=== PATIENT | male | born 1965 | race Caucasian/White ===

== ENCOUNTER 2023-04-14 19:39 | Observation (INO) | payer MEDICARE, MEDICAID ==
[2023-04-14 21:06] VITALS: BMI 26.9
[2023-04-14] MEDS ORDERED: Ipratropium/Albuterol 3 ML NEB NEB PRN (21:50)
[2023-04-14] MEDS ORDERED: traZODone HCl 50 MG TAB PO PRN (21:51)
[2023-04-14] MEDS: Atorvastatin Calcium 40 MG TAB PO SCH (22:11)
[2023-04-14] MEDS: Enoxaparin 80 MG (0.8 mL) SYRINGE SC SCH (22:12)
[2023-04-14] MEDS: traZODone HCl 50 MG TAB PO SCH (22:12)
[2023-04-14] MEDS: Nitroglycerin 2% Ointment 1 INCH/1 GM Packet TOP SCH (22:13)
[2023-04-14 22:31] LABS: PTT 25.5 sec (22.0-33.0); Prothrombin Time 11.2 sec (9.5-12.1)
[2023-04-14 22:34] LABS: Anion Gap 12 mmol/L (10-20); BUN (Urea Nitrogen) 19 mg/dL (8.4-25.7); Calc. Creatinine Clearance 64 mL/min (70-130); Carbon Dioxide 26 mmol/L (22-29); Chloride 101 mmol/L (98-107); Estimated GFR 59; Glucose 105 mg/dL (70-105); Magnesium 2.1 mg/dL (1.6-2.6); Potassium 3.3 mmol/L (3.5-5.1); Sodium 136 mmol/L (136-145)
[2023-04-15] MEDS: Potassium Chloride 20 MEQ TAB PO SCH ×2 (03:34→06:23)
[2023-04-15 04:26] LABS: Anion Gap 12 mmol/L (10-20); BUN (Urea Nitrogen) 19 mg/dL (8.4-25.7); Calc. Creatinine Clearance 70 mL/min (70-130); Calcium 8.3 mg/dL (7.8-10.44); Carbon Dioxide 27 mmol/L (22-29); Cardiac Risk 5.1 (Less than 4.5); Chloride 102 mmol/L (98-107); Cholesterol 178 mg/dl (< 200 Desired); Estimated GFR 65; Glucose 99 mg/dL (70-105); HDL Cholesterol 35 mg/dL (>60 Neg Risk); Iron 10 ug/dL (65-175); Iron Binding Capacity, Total 406 mcg/dL (261-462); Iron Binding Capacity, Total 415 mcg/dL (261-462); LDL Cholesterol, Calculated 113 mg/dL; Magnesium 2.2 mg/dL (1.6-2.6); Potassium 3.2 mmol/L (3.5-5.1); Sodium 138 mmol/L (136-145); Triglycerides 149 mg/dL (Less than 150)
[2023-04-15] MEDS: Enoxaparin 80 MG (0.8 mL) SYRINGE SC SCH (08:18)
[2023-04-15] MEDS: Montelukast Sodium 10 mg Tablet PO SCH (08:19)
[2023-04-15] MEDS: Aspirin Chewable 81 MG TAB PO SCH (08:19)
[2023-04-15] MEDS: Furosemide 40 MG (4 mL) VIAL SLOW IVP SCH (08:19)
[2023-04-15] MEDS: Tamsulosin HCl 0.4 MG CAP PO SCH (08:19)
[2023-04-15] MEDS: Lisinopril 20 MG TAB PO SCH (08:19)
[2023-04-15 11:33] LABS: Magnesium 2.2 mg/dL (1.6-2.6)
[2023-04-15 11:45] LABS: Lymphocytes 17 % (21-51); Monocytes 8 % (0-10); Neutrophil 67 % (42-75); Reactive Lymphocytes 7 % (0-10)
[2023-04-15 11:46] LABS: MDiff Complete? YES; Microcytosis SLIGHT = 6-15 cells (100X) (0-5/hpf); Platelet Adequacy Comment Appears Adequate
[2023-04-15 11:47] LABS: Hemoglobin 10.2 g/dL (13.5-17.5); Mean Corpuscular Hemoglobin 20.1 pg (27.0-33.0); Mean Corpuscular Volume 66.9 fl (81.2-95.1); Mean Platelet Volume 11.2 fl (7.4-10.4); Platelet Count 295 10x3/uL (150-450); RBC Distribution Width 15.9 % (11.5-14.5); Red Blood Cell (RBC) Count 5.08 10x6/uL (4.32-5.72); White Blood Cell (WBC) Count 7.3 10x3/uL (3.5-10.5)
[2023-04-15] MEDS: Amlodipine 5 MG TAB PO SCH (12:18)
[2023-04-15 16:10] VITALS: BP 185/88; TEMP 97.5
[2023-04-15] MEDS ORDERED: Atorvastatin Calcium 40 MG TAB PO SCH (21:00)
[2023-04-16] MEDS ORDERED: Amlodipine 5 MG TAB PO SCH (09:00)
== END 2023-04-15 16:41 | disposition home or self-care (01) ==
LOC: CSHTELE 20:41
PROVIDERS: ADMIT Hospitalist; ATTEND Hospitalist
DX: I11.0 Hypertensive heart disease with heart failure (principal); I50.31 Acute diastolic (congestive) heart failure; I48.0 Paroxysmal atrial fibrillation; J96.01 Acute respiratory failure with hypoxia; D50.9 Iron deficiency anemia, unspecified; E78.5 Hyperlipidemia, unspecified; R79.89 Other specified abnormal findings of blood chemistry; I34.0 Nonrheumatic mitral (valve) insufficiency; J45.909 Unspecified asthma, uncomplicated; Z98.890 Other specified postprocedural states; Z79.01 Long term (current) use of anticoagulants; Z79.899 Other long term (current) drug therapy
CPT/HCPCS: 36415; 71045; 80048; 80061; 82728; 83540; 83550; 83735; 85025; 85610; 85730; 93005; 93010; 93306; 96372; 96374; G0378; J1650; J1940

== ENCOUNTER 2023-05-07 00:48 | Inpatient (IN) | payer MEDICARE, MEDICAID ==
[2023-05-07 01:16] LABS: #Basophils 0.1 10x3/uL (0.0-0.2); #Eosinphils 0.1 10x3/uL (0.0-0.5); #Monocytes 0.6 10x3/uL (0.0-1.1); #Neutrophils 6.2 10x3/uL (1.5-8.4); %Basophils 0.7 % (0.0-2.0); %Eosinophils 0.9 % (0.0-6.0); %Lymphocytes 20.3 % (18.0-47.0); %Monocytes 7.2 % (0.0-10.0); %Neutrophils 70.1 % (40.0-75.0); Critical Call w/ Read Back ERS.EG@0115; Hematocrit 17.8 % (38.8-50.0); Hemoglobin 5.2 g/dL (13.5-17.5); Mean Corpuscular HGB CONC 29.2 g/dL (32.0-36.0); Mean Corpuscular Hemoglobin 19.6 pg (27.0-33.0); Mean Corpuscular Volume 67.2 fl (81.2-95.1); Mean Platelet Volume 11.5 fl (7.4-10.4); Platelet Count 226 10x3/uL (150-450); RBC Distribution Width 16.3 % (11.5-14.5); Red Blood Cell (RBC) Count 2.65 10x6/uL (4.32-5.72); White Blood Cell (WBC) Count 8.8 10x3/uL (3.5-10.5)
[2023-05-07 01:18] LABS: INR-International Normal Ratio 1.1; PTT 26.8 sec (22.0-33.0); Prothrombin Time 11.9 sec (9.5-12.1)
[2023-05-07 01:21] LABS: ALT (SGPT) 7 U/L (8-55); AST (SGOT) 8 U/L (5-34); Albumin 3.1 g/dL (3.5-5.0); Alkaline Phosphatase 30 U/L (40-110); Anion Gap 14 mmol/L (10-20); BUN (Urea Nitrogen) 39 mg/dL (8.4-25.7); Bilirubin, Total 0.4 mg/dL (0.2-1.2); Calc. Creatinine Clearance 0 mL/min (70-130); Calcium 7.6 mg/dL (7.8-10.44); Carbon Dioxide 20 mmol/L (22-29); Chloride 101 mmol/L (98-107); Estimated GFR 92; Globulin 1.8 g/dL (2.4-3.5); Glucose 140 mg/dL (70-105); Potassium 3.6 mmol/L (3.5-5.1); Protein, Total 4.9 g/dL (6.0-8.3); Sodium 131 mmol/L (136-145)
[2023-05-07] MEDS ORDERED: Pantoprazole 40 MG VIAL ONE ×2 (01:30→03:30)
[2023-05-07 01:47] LABS: Hypochromia MODERATE=16-30 cells (100X) (0-5/hpf); Microcytosis MODERATE=15-30 cells (100X) (0-5/hpf)
[2023-05-07 01:48] LABS: Polychromasia SLIGHT = 2-3 cells (100X) (0-2/hpf)
[2023-05-07 01:49] LABS: Elliptocytes SLIGHT = 2-5 cells (100X) (0-1/hpf); Ovalocytes MODERATE= 6-15 cells (100X) (0-1/hpf); Small Platelets MODERATE HPF (0-15)
[2023-05-07 01:50] LABS: Platelet Adequacy Comment Appears Adequate
[2023-05-07] MEDS: Promethazine HCl 12.5 MG in Sodium Chloride 0.9% 50 ML IVPB SCH (05:01)
[2023-05-07] MEDS: HUM PROTHROMBIN CPLX(PCC)4FACT 2,000 UNITS IV SCH (05:02)
[2023-05-07] MEDS: Mometasone/Formoterol 200/5 60 PUFF INH SCH (06:59)
[2023-05-07 08:25] LABS: #Monocytes 0.8 10x3/uL (0.0-1.1); #Neutrophils 6.1 10x3/uL (1.5-8.4); %Basophils 0.4 % (0.0-2.0); %Eosinophils 0.3 % (0.0-6.0); %Lymphocytes 24.3 % (18.0-47.0); %Monocytes 8.6 % (0.0-10.0); %Neutrophils 65.8 % (40.0-75.0); Hematocrit 21.9 % (38.8-50.0); Hemoglobin 7.1 g/dL (13.5-17.5); Mean Corpuscular HGB CONC 32.4 g/dL (32.0-36.0); Mean Platelet Volume 11.4 fl (7.4-10.4); Platelet Count 185 10x3/uL (150-450); RBC Distribution Width 20.4 % (11.5-14.5); Red Blood Cell (RBC) Count 2.96 10x6/uL (4.32-5.72); White Blood Cell (WBC) Count 9.3 10x3/uL (3.5-10.5)
[2023-05-07 08:32] LABS: Anion Gap 11 mmol/L (10-20); BUN (Urea Nitrogen) 40 mg/dL (8.4-25.7); Calc. Creatinine Clearance 0 mL/min (70-130); Calcium 7.8 mg/dL (7.8-10.44); Carbon Dioxide 23 mmol/L (22-29); Chloride 107 mmol/L (98-107); Estimated GFR 93; Glucose 112 mg/dL (70-105); Potassium 4.2 mmol/L (3.5-5.1); Sodium 137 mmol/L (136-145)
[2023-05-07 08:38] LABS: Troponin I 0.112 ng/mL (< 0.028)
[2023-05-07] MEDS: Metoprolol Tartrate 25 MG TAB PO SCH (08:39)
[2023-05-07 08:40] LABS: PTT 24.1 sec (22.0-33.0); Prothrombin Time 11.1 sec (9.5-12.1)
[2023-05-07] MEDS: Sodium Chloride 0.9% 1,000 ML IV SCH (08:40)
[2023-05-07 12:14] LABS: #Monocytes 0.7 10x3/uL (0.0-1.1); #Neutrophils 5.2 10x3/uL (1.5-8.4); %Basophils 0.5 % (0.0-2.0); %Eosinophils 0.5 % (0.0-6.0); %Lymphocytes 20.9 % (18.0-47.0); %Monocytes 9.2 % (0.0-10.0); %Neutrophils 68.2 % (40.0-75.0); Hematocrit 21.1 % (38.8-50.0); Hemoglobin 6.7 g/dL (13.5-17.5); Mean Corpuscular HGB CONC 31.8 g/dL (32.0-36.0); Mean Corpuscular Hemoglobin 23.7 pg (27.0-33.0); Mean Corpuscular Volume 74.6 fl (81.2-95.1); Platelet Count 174 10x3/uL (150-450); RBC Distribution Width 19.6 % (11.5-14.5); Red Blood Cell (RBC) Count 2.83 10x6/uL (4.32-5.72); White Blood Cell (WBC) Count 7.6 10x3/uL (3.5-10.5)
[2023-05-07 12:47] LABS: Troponin I 0.102 ng/mL (< 0.028)
[2023-05-07] MEDS: Pantoprazole 80 MG in Sodium Chloride 0.9% 100 ML IVPB SCH (13:15)
[2023-05-07 18:45] LABS: #Basophils 0.1 10x3/uL (0.0-0.2); #Eosinphils 0.1 10x3/uL (0.0-0.5); #Monocytes 0.7 10x3/uL (0.0-1.1); #Neutrophils 5.9 10x3/uL (1.5-8.4); %Basophils 0.7 % (0.0-2.0); %Eosinophils 1.4 % (0.0-6.0); %Lymphocytes 20.4 % (18.0-47.0); %Monocytes 7.7 % (0.0-10.0); %Neutrophils 69.1 % (40.0-75.0); Hemoglobin 6.9 g/dL (13.5-17.5); Mean Corpuscular HGB CONC 31.4 g/dL (32.0-36.0); Mean Corpuscular Hemoglobin 24.3 pg (27.0-33.0); Mean Corpuscular Volume 77.5 fl (81.2-95.1); Mean Platelet Volume 11.5 fl (7.4-10.4); Platelet Count 164 10x3/uL (150-450); RBC Distribution Width 20.2 % (11.5-14.5); Red Blood Cell (RBC) Count 2.84 10x6/uL (4.32-5.72); White Blood Cell (WBC) Count 8.5 10x3/uL (3.5-10.5)
[2023-05-07 21:03] LABS: Hematocrit 25.2 % (38.8-50.0); Hemoglobin 7.5 g/dL (13.5-17.5)
[2023-05-08 01:30] LABS: #Basophils 0.1 10x3/uL (0.0-0.2); #Eosinphils 0.2 10x3/uL (0.0-0.5); #Monocytes 0.7 10x3/uL (0.0-1.1); #Neutrophils 4.9 10x3/uL (1.5-8.4); %Basophils 0.7 % (0.0-2.0); %Eosinophils 2.5 % (0.0-6.0); %Lymphocytes 22.6 % (18.0-47.0); %Monocytes 9.2 % (0.0-10.0); %Neutrophils 64.3 % (40.0-75.0); Hematocrit 20.8 % (38.8-50.0); Hemoglobin 6.6 g/dL (13.5-17.5); Mean Corpuscular HGB CONC 31.7 g/dL (32.0-36.0); Mean Corpuscular Hemoglobin 24.3 pg (27.0-33.0); Mean Corpuscular Volume 76.5 fl (81.2-95.1); Mean Platelet Volume 11.1 fl (7.4-10.4); Platelet Count 143 10x3/uL (150-450); RBC Distribution Width 20.1 % (11.5-14.5); Red Blood Cell (RBC) Count 2.72 10x6/uL (4.32-5.72); White Blood Cell (WBC) Count 7.6 10x3/uL (3.5-10.5)
[2023-05-08] MEDS ORDERED: EPINEPHrine 1 MG/10 ML Abboject SYRINGE ONE (12:07)
[2023-05-08] MEDS ORDERED: Lidocaine 2% MPF 10 ML AMP (For Epidural Use) ONE (13:37)
[2023-05-08] MEDS ORDERED: PROPOFOL 20 ML ONE ×2 (13:38→14:21)
[2023-05-08] MEDS ORDERED: Etomidate 40 MG (20 mL) VIAL ONE (13:53)
[2023-05-08] MEDS ORDERED: Vasopressin 20 UNITS/ML VIAL ONE (13:54)
[2023-05-08 15:50] LABS: Hematocrit 21.9 % (38.8-50.0); Hemoglobin 6.9 g/dL (13.5-17.5)
[2023-05-08] MEDS: Ipratropium/Albuterol 3 ML NEB NEB PRN (16:30)
[2023-05-08] MEDS: Furosemide 40 MG (4 mL) VIAL SLOW IVP SCH (17:32)
[2023-05-08] MEDS: Metoprolol Tartrate 25 MG TAB PO SCH (20:26)
[2023-05-08] MEDS: Atorvastatin Calcium 40 MG TAB PO SCH (20:26)
[2023-05-08 22:17] LABS: Hematocrit 26.1 % (38.8-50.0); Hemoglobin 8.7 g/dL (13.5-17.5)
[2023-05-09 00:31] VITALS: BMI 29.7
[2023-05-09 03:46] LABS: Anion Gap 13 mmol/L (10-20); BUN (Urea Nitrogen) 15 mg/dL (8.4-25.7); Calc. Creatinine Clearance 90 mL/min (70-130); Calcium 7.7 mg/dL (7.8-10.44); Carbon Dioxide 21 mmol/L (22-29); Chloride 107 mmol/L (98-107); Estimated GFR 91; Glucose 101 mg/dL (70-105); Potassium 3.7 mmol/L (3.5-5.1); Sodium 137 mmol/L (136-145)
[2023-05-09 05:56] LABS: #Basophils 0.1 10x3/uL (0.0-0.2); #Eosinphils 0.4 10x3/uL (0.0-0.5); #Monocytes 0.8 10x3/uL (0.0-1.1); #Neutrophils 5.3 10x3/uL (1.5-8.4); %Eosinophils 4.8 % (0.0-6.0); %Lymphocytes 16.2 % (18.0-47.0); %Monocytes 10.6 % (0.0-10.0); %Neutrophils 66.9 % (40.0-75.0); Hematocrit 27.6 % (38.8-50.0); Hemoglobin 9.1 g/dL (13.5-17.5); Mean Corpuscular Volume 78.9 fl (81.2-95.1); Mean Platelet Volume 11.4 fl (7.4-10.4); Platelet Count 155 10x3/uL (150-450); RBC Distribution Width 19.3 % (11.5-14.5); White Blood Cell (WBC) Count 7.9 10x3/uL (3.5-10.5)
[2023-05-09] MEDS: Ondansetron PF 4 MG/2 ML Vial IVP PRN (08:08)
[2023-05-09] MEDS: Furosemide 40 MG TAB PO SCH (08:25)
[2023-05-09] MEDS: Montelukast Sodium 10 mg Tablet PO SCH (08:25)
[2023-05-09] MEDS: Tamsulosin HCl 0.4 MG CAP PO SCH (08:25)
[2023-05-09] MEDS: Mirabegron ER 25 MG ER.TAB PO SCH (08:47)
[2023-05-09 09:34] VITALS: BP 179/62; TEMP 98.1
== END 2023-05-09 11:08 | disposition home or self-care (01) | DRG 377 ==
LOC: CSHERS 00:48 → CSHERHOLD 02:32 → CSHICU 08:39
PROVIDERS: ADMIT Student in an Organized Health Care Education/Training Program; ATTEND Internal Medicine
PROC: 0W3P8ZZ Control Bleeding in Gastrointestinal Tract, Via Natural or Artificial Opening Endoscopic (ICD-10-PCS; principal; 2023-05-08)
DX: K92.0 Hematemesis (principal); I21.A1 Myocardial infarction type 2; D62 Acute posthemorrhagic anemia; I50.32 Chronic diastolic (congestive) heart failure; Q27.33 Arteriovenous malformation of digestive system vessel; R62.50 Unspecified lack of expected normal physiological development in childhood; R10.13 Epigastric pain; F20.9 Schizophrenia, unspecified; I48.0 Paroxysmal atrial fibrillation; Z98.890 Other specified postprocedural states; Z90.89 Acquired absence of other organs; R79.89 Other specified abnormal findings of blood chemistry; Z79.82 Long term (current) use of aspirin; Z79.899 Other long term (current) drug therapy; Z79.01 Long term (current) use of anticoagulants; I11.0 Hypertensive heart disease with heart failure
CPT/HCPCS: 36415; 36430; 71045; 80048; 80053; 82274; 84484; 85025; 85610; 85730; 86850; 86900; 86901; 93005; 94640; 94664; 94760; 94762; 96374; 96375; 96376; C1889; C9113; J0171; J1940; J2405; J2704; J3490; J7050; J7620; P9016

== ENCOUNTER 2023-05-20 19:44 | Inpatient (IN) | payer MEDICARE, MEDICAID ==
[2023-05-20 20:30] LABS: ALV-art Gradient 140.075 mmHg (0-20); Actual Bicarbonate (HCO3a) 25.8 mEq/L (22-28); Analyzer IN Cardio CS ER; CO2 Tension 41.7 mmHg (35.0-45.0); Calcium, Ionized (arterial) 1.06 mmol/L (1.12-1.30); Carboxyhemoglobin (COHb) 0.2 gm% (0.0-3.0); Hematocrit-ABG 27 % (42.0-52.0); Hemoglobin (Hb) 9.2 g/dL (14.0-18.0); Potassium - ABG Lab 3.09 mmol/L (3.70-5.30); Puncture Site RRA; pH, Arterial 7.409 (7.35-7.45)
[2023-05-20 21:10] LABS: ALT (SGPT) 18 U/L (8-55); AST (SGOT) 18 U/L (5-34); Albumin 3.3 g/dL (3.5-5.0); Alkaline Phosphatase 61 U/L (40-110); Anion Gap 10 mmol/L (10-20); BUN (Urea Nitrogen) 9 mg/dL (8.4-25.7); Bilirubin, Total 0.6 mg/dL (0.2-1.2); Calc. Creatinine Clearance 0 mL/min (70-130); Calcium 7.9 mg/dL (7.8-10.44); Carbon Dioxide 27 mmol/L (22-29); Chloride 102 mmol/L (98-107); Estimated GFR 86; Globulin 2.2 g/dL (2.4-3.5); Glucose 131 mg/dL (70-105); Potassium 3.4 mmol/L (3.5-5.1); Protein, Total 5.5 g/dL (6.0-8.3); Sodium 136 mmol/L (136-145)
[2023-05-20 21:57] LABS: #Basophils 0.06 10x3/uL (0.0-0.2); #Neutrophils 15.34 10x3/uL (1.5-8.4); %Basophils 0.3 % (0.0-2.0); %Lymphocytes 5.6 % (18.0-47.0); %Monocytes 8.3 % (0.0-10.0); %Neutrophils 85.1 % (40.0-75.0); Hematocrit 26.5 % (38.8-50.0); Hemoglobin 8.6 g/dL (13.5-17.5); Mean Corpuscular HGB CONC 32.5 g/dL (32.0-36.0); Mean Corpuscular Hemoglobin 25.1 pg (27.0-33.0); Mean Corpuscular Volume 77.5 fl (81.2-95.1); Mean Platelet Volume 10.2 fl (7.4-10.4); Platelet Count 228 10x3/uL (150-450); RBC Distribution Width 17.5 % (11.5-14.5); Red Blood Cell (RBC) Count 3.42 10x6/uL (4.32-5.72)
[2023-05-20] MEDS ORDERED: Cefepime 2 GM VIAL ONE (22:23)
[2023-05-20] MEDS ORDERED: Furosemide 40 MG (4 mL) VIAL ONE (22:23)
[2023-05-20] MEDS ORDERED: Acetaminophen 500 MG TAB ONE (23:10)
[2023-05-20] MEDS ORDERED: Ondansetron PF 4 MG/2 ML Vial IVP PRN (23:51)
[2023-05-20] MEDS ORDERED: Senokot S 8.6-50 MG TAB PO PRN (23:51)
[2023-05-20] MEDS ORDERED: Calcium Carbonate 500 MG ChewTAB PO PRN (23:51)
[2023-05-21 00:30] LABS: Influenza A by NAA Not Detected (NotDetected); Influenza B by NAA Not Detected (NotDetected); SARS-CoV-2 NAA Rapid Test Not Detected (NotDetected)
[2023-05-21] MEDS: Potassium Chloride 20 MEQ TAB PO SCH ×2 (02:14→06:15)
[2023-05-21] MEDS: Amlodipine 5 MG TAB PO SCH (02:15)
[2023-05-21] MEDS: Nitroglycerin 2% Ointment 1 INCH/1 GM Packet TOP SCH (02:15)
[2023-05-21] MEDS: Vancomycin 1.5 GRAM/300 ML BAG 1.5 GM in Premix 1 BAG IVPB SCH ×2 (02:30→23:35)
[2023-05-21 03:21] LABS: #Basophils 0.08 10x3/uL (0.0-0.2); #Eosinphils 0.02 10x3/uL (0.0-0.5); #Monocytes 1.37 10x3/uL (0.0-1.1); %Basophils 0.5 % (0.0-2.0); %Eosinophils 0.1 % (0.0-6.0); %Lymphocytes 9.6 % (18.0-47.0); %Monocytes 8.9 % (0.0-10.0); %Neutrophils 80.2 % (40.0-75.0); Hematocrit 27.8 % (38.8-50.0); Hemoglobin 8.8 g/dL (13.5-17.5); Mean Corpuscular HGB CONC 31.7 g/dL (32.0-36.0); Mean Corpuscular Hemoglobin 24.6 pg (27.0-33.0); Mean Corpuscular Volume 77.9 fl (81.2-95.1); Mean Platelet Volume 11.3 fl (7.4-10.4); Platelet Count 259 10x3/uL (150-450); RBC Distribution Width 17.6 % (11.5-14.5); Red Blood Cell (RBC) Count 3.57 10x6/uL (4.32-5.72); White Blood Cell (WBC) Count 15.4 10x3/uL (3.5-10.5)
[2023-05-21 03:53] LABS: Anion Gap 17 mmol/L (10-20); BUN (Urea Nitrogen) 10 mg/dL (8.4-25.7); Calc. Creatinine Clearance 81 mL/min (70-130); Calcium 8.4 mg/dL (7.8-10.44); Carbon Dioxide 24 mmol/L (22-29); Chloride 101 mmol/L (98-107); Estimated GFR 79; Glucose 106 mg/dL (70-105); Potassium 3.5 mmol/L (3.5-5.1); Sodium 138 mmol/L (136-145)
[2023-05-21 04:03] LABS: Troponin I 0.228 ng/mL (< 0.028)
[2023-05-21] MEDS: Cefepime 2 GM in Sodium Chloride 0.9% 100 ML IVPB SCH (05:21)
[2023-05-21] MEDS: Furosemide 20 MG (2 mL) VIAL SLOW IVP SCH (05:21)
[2023-05-21 06:35] LABS: Legionella Urinary Ag Negative (Negative); Strep pneumo Urine Ag NEGATIVE (NEGATIVE)
[2023-05-21] MEDS: Metoprolol Tartrate 25 MG TAB PO SCH (08:03)
[2023-05-21] MEDS: Apixaban 5 MG TAB PO SCH (08:03)
[2023-05-21] MEDS: Benzonatate 100 MG CAP PO SCH (08:03)
[2023-05-21] MEDS: Aspirin Chewable 81 MG TAB PO SCH (08:03)
[2023-05-21] MEDS: Lisinopril 20 MG TAB PO SCH (08:03)
[2023-05-21] MEDS: Tamsulosin HCl 0.4 MG CAP PO SCH (08:04)
[2023-05-21] MEDS: FLU VACC QS2023-24(6MOS UP)/PF 60 MCG/0.5 ML SYRINGE IM ONE (08:11)
[2023-05-21 08:18] LABS: Troponin I 0.241 ng/mL (< 0.028)
[2023-05-21] MEDS: Mirabegron ER 25 MG ER.TAB PO SCH (08:57)
[2023-05-21] MEDS ORDERED: Amlodipine 5 MG TAB PO SCH (09:00)
[2023-05-21 10:14] LABS: Magnesium 1.9 mg/dL (1.6-2.6)
[2023-05-21] MEDS: Carvedilol 6.25 MG TAB PO SCH (16:52)
[2023-05-21] MEDS: Acetaminophen 325 MG TAB PO PRN (16:52)
[2023-05-21] MEDS: Montelukast Sodium 10 mg Tablet PO SCH (20:12)
[2023-05-21] MEDS: Atorvastatin Calcium 40 MG TAB PO SCH (20:14)
[2023-05-21] MEDS: traZODone HCl 50 MG TAB PO SCH (20:14)
[2023-05-22 03:35] LABS: #Basophils 0.05 10x3/uL (0.0-0.2); #Eosinphils 0.29 10x3/uL (0.0-0.5); #Monocytes 0.97 10x3/uL (0.0-1.1); #Neutrophils 6.11 10x3/uL (1.5-8.4); %Basophils 0.6 % (0.0-2.0); %Eosinophils 3.6 % (0.0-6.0); %Lymphocytes 8.6 % (18.0-47.0); %Monocytes 11.9 % (0.0-10.0); %Neutrophils 74.8 % (40.0-75.0); Hematocrit 27.2 % (38.8-50.0); Hemoglobin 8.4 g/dL (13.5-17.5); Mean Corpuscular HGB CONC 30.9 g/dL (32.0-36.0); Mean Corpuscular Hemoglobin 24.3 pg (27.0-33.0); Mean Corpuscular Volume 78.8 fl (81.2-95.1); Mean Platelet Volume 10.4 fl (7.4-10.4); Platelet Count 209 10x3/uL (150-450); RBC Distribution Width 17.9 % (11.5-14.5); Red Blood Cell (RBC) Count 3.45 10x6/uL (4.32-5.72); White Blood Cell (WBC) Count 8.2 10x3/uL (3.5-10.5)
[2023-05-22 03:56] LABS: Vancomycin, Random 27.6 ug/mL (See Comment)
[2023-05-22 03:59] LABS: Anion Gap 15 mmol/L (10-20); BUN (Urea Nitrogen) 12 mg/dL (8.4-25.7); Calc. Creatinine Clearance 83 mL/min (70-130); Calcium 8.4 mg/dL (7.8-10.44); Carbon Dioxide 24 mmol/L (22-29); Chloride 104 mmol/L (98-107); Estimated GFR 82; Glucose 83 mg/dL (70-105); Potassium 3.2 mmol/L (3.5-5.1); Sodium 140 mmol/L (136-145)
[2023-05-22] MEDS: Potassium Chloride 20 MEQ TAB PO SCH (05:56)
[2023-05-22] MEDS: Guaifenesin DM 100-10/5 ML UDCUP PO PRN (07:47)
[2023-05-22] MEDS: Ferrous Sulfate 325 MG TAB PO SCH (07:53)
[2023-05-22] MEDS: Vancomycin HCl 750 MG in Sodium Chloride 0.9% 250 ML 250 ML IVPB SCH (10:27)
[2023-05-22] MEDS: guaiFENesin ER 600 MG TAB PO SCH ×2 (12:37→20:55)
[2023-05-22] MEDS: hydrALAZINE 20 MG/ML VIAL SLOW IVP PRN (19:55)
[2023-05-23] MEDS: Acetaminophen W/ Codeine 5 ML UDCUP PO SCH (01:53)
[2023-05-23] MEDS: Promethazine HCl 6.25 MG/5 ML Syrup PO SCH (01:55)
[2023-05-23 03:34] VITALS: BMI 28.5
[2023-05-23 04:04] LABS: Vancomycin, Random 16.7 ug/mL (See Comment)
[2023-05-23 04:14] LABS: Anion Gap 13 mmol/L (10-20); BUN (Urea Nitrogen) 11 mg/dL (8.4-25.7); Calc. Creatinine Clearance 98 mL/min (70-130); Calcium 8.3 mg/dL (7.8-10.44); Carbon Dioxide 24 mmol/L (22-29); Chloride 102 mmol/L (98-107); Estimated GFR 101; Glucose 156 mg/dL (70-105); Potassium 3.1 mmol/L (3.5-5.1); Sodium 136 mmol/L (136-145)
[2023-05-23 04:16] LABS: #Basophils 0.04 10x3/uL (0.0-0.2); #Eosinphils 0.22 10x3/uL (0.0-0.5); #Monocytes 0.88 10x3/uL (0.0-1.1); #Neutrophils 6.05 10x3/uL (1.5-8.4); %Basophils 0.5 % (0.0-2.0); %Eosinophils 2.7 % (0.0-6.0); %Lymphocytes 11.7 % (18.0-47.0); %Monocytes 10.7 % (0.0-10.0); %Neutrophils 73.2 % (40.0-75.0); Hematocrit 29.5 % (38.8-50.0); Hemoglobin 9.2 g/dL (13.5-17.5); Mean Corpuscular HGB CONC 31.2 g/dL (32.0-36.0); Mean Corpuscular Hemoglobin 24.4 pg (27.0-33.0); Mean Corpuscular Volume 78.2 fl (81.2-95.1); Mean Platelet Volume 11.2 fl (7.4-10.4); Platelet Count 233 10x3/uL (150-450); Red Blood Cell (RBC) Count 3.77 10x6/uL (4.32-5.72); White Blood Cell (WBC) Count 8.3 10x3/uL (3.5-10.5)
[2023-05-23] MEDS: Potassium Chloride 20 MEQ in Premix 1 BAG IVPB SCH (04:58)
[2023-05-23] MEDS: Potassium Chloride 20 MEQ TAB PO SCH ×2 (04:58→09:44)
[2023-05-23] MEDS: Furosemide 20 MG TAB PO SCH (08:23)
[2023-05-23] MEDS: Amoxicillin/Potassium Clav 875 MG TAB PO SCH (08:37)
[2023-05-23] MEDS: Amlodipine 5 MG TAB PO SCH (09:44)
[2023-05-23] MEDS: Magnesium 2 GM/50 ML(in water) 2 GM in Premix 1 BAG IVPB SCH (10:20)
[2023-05-23 11:38] VITALS: BP 164/80; TEMP 98.4
[2023-05-23 13:18] LABS: Anion Gap 12 mmol/L (10-20); BUN (Urea Nitrogen) 7 mg/dL (8.4-25.7); Calc. Creatinine Clearance 99 mL/min (70-130); Calcium 8.6 mg/dL (7.8-10.44); Carbon Dioxide 25 mmol/L (22-29); Chloride 103 mmol/L (98-107); Estimated GFR 101; Glucose 192 mg/dL (70-105); Potassium 3.9 mmol/L (3.5-5.1); Sodium 136 mmol/L (136-145)
[2023-05-24] MEDS ORDERED: Amlodipine 5 MG TAB PO SCH (09:00)
== END 2023-05-23 15:22 | disposition home health service (06) | DRG 871 ==
LOC: CSHERS 19:44 → CSHIMCU 23:55
PROVIDERS: ADMIT Student in an Organized Health Care Education/Training Program; ATTEND Internal Medicine
PROC: 3E03329 Introduction of Other Anti-infective into Peripheral Vein, Percutaneous Approach (ICD-10-PCS; principal; 2023-05-20)
PROC: 5A09457 Assistance with Respiratory Ventilation, 24-96 Consecutive Hours, Continuous Positive Airway Pressure (ICD-10-PCS; 2023-05-21)
DX: A41.9 Sepsis, unspecified organism (principal); I21.A1 Myocardial infarction type 2; I50.33 Acute on chronic diastolic (congestive) heart failure; J18.9 Pneumonia, unspecified organism; J96.01 Acute respiratory failure with hypoxia; J69.0 Pneumonitis due to inhalation of food and vomit; I11.0 Hypertensive heart disease with heart failure; R62.50 Unspecified lack of expected normal physiological development in childhood; K55.20 Angiodysplasia of colon without hemorrhage; I48.0 Paroxysmal atrial fibrillation; R79.89 Other specified abnormal findings of blood chemistry; I34.0 Nonrheumatic mitral (valve) insufficiency; F20.9 Schizophrenia, unspecified; D50.0 Iron deficiency anemia secondary to blood loss (chronic); N40.0 Benign prostatic hyperplasia without lower urinary tract symptoms; N32.81 Overactive bladder; Z79.01 Long term (current) use of anticoagulants; Z90.89 Acquired absence of other organs; Z98.890 Other specified postprocedural states; Z79.899 Other long term (current) drug therapy; Z91.148 Patient's other noncompliance with medication regimen for other reason
CPT/HCPCS: 36415; 36600; 71045; 71046; 80048; 80053; 80202; 82805; 83605; 83735; 83880; 84145; 84484; 85025; 87040; 87449; 87899; 93005; 93306; 94660; 94760; 94762; 96374; 96375; J0360; J0692; J1940; J3370; J3475; J3480; J3490; J7050